=== PATIENT | female | born 1945 | race African-American/Black ===

== ENCOUNTER 2019-03-27 13:16 | Observation (INO) ==
[2019-03-27] MEDS ORDERED: ASPIRIN PO ONE (13:33)
--- NOTE | 2019-03-27 13:37 | EKG Report ---
Test Performed on : 03/27/2019 1:26:50 PM Test Reason : CHEST PAIN Blood Pressure : / mmHG Vent. Rate : 072 BPM Atrial Rate : 072 BPM P-R Int : 150 ms QRS Dur : 088 ms QT Int : 396 ms P-R-T Axes : 069 -13 022 degrees QTc Int : 433 ms Normal sinus rhythm. Possible Left atrial enlargement Borderline ECG No previous ECGs available Unconfirmed Result
[2019-03-27 13:47] LABS: BASO# 0.07 X1000 (0.0-0.2); BASO% 1.6 % (0.0-0.8); EOS# 0.31 X1000 (0.0-0.7); EOS% 6.9 % (0.0-10.0); HEMATOCRIT 37.1 % (37.0-47.0); HEMOGLOBIN 12.2 g/dL (12.0-16.0); LYMPH# 2.04 X1000 (1.2-3.4); LYMPH% 45.5 % (20.5-51.1); MCH 29.6 PG (27-31); MCHC 32.9 g/dL (33-37); MONO# 0.35 X1000 (0.11-0.59); MONO% 7.8 % (1.7-9.3); NEUT# 1.71 X1000 (1.4-6.5); NEUT% 38.2 % (42.2-75.2); PLT 282 X1000 (130-400); RBC 4.12 XMIL (4.2-5.4); WBC 4.48 X1000 (4.8-10.8)
--- NOTE | 2019-03-27 13:52 | Diag Imaging Result Doc PS360 ---
CHEST-2 VIEWS - 03/27/2019 INDICATION: chest and lung pain COMPARISON: 03/20/2019 FINDINGS: The lungs are normally expanded and clear. Heart size and mediastinal contours are normal. No pneumothorax or pleural effusion. IMPRESSION: Negative exam. Electronically signed by Fabián Henderson 03/27/2019 1:49 PM
[2019-03-27 13:55] LABS: PROTIME 13.3 Seconds (11.0-16.0)
[2019-03-27 13:56] LABS: PTT 40.4 Seconds (22.3-41.8)
[2019-03-27 14:17] LABS: AGAP 11; ALB/GLOB RATIO 1.4; ALBUMIN 4.4 g/dL (3.5-5.0); ALKALINE PHOSPHATASE 60 U/L (32-104); BUN 13 mg/dL (8-22); CHLORIDE 102 mmol/L (98-107); COSMO 280; ESTIMATED GFR > 60; GLUCOSE 104 mg/dL (70-104); GOT 19 U/L (10-30); GPT 13 U/L (10-36); POTASSIUM 4.4 mmol/L (3.5-5.1); SODIUM 140 mmol/L (136-145); TCO2 27 mmol/L (25-35); TOTAL BILIRUBIN 0.37 mg/dL (0.20-1.00); TOTAL PROTEIN 7.5 g/dL (6.3-8.3)
[2019-03-27 14:19] LABS: CK PROFILE 192 U/L (24-173)
[2019-03-27 14:36] LABS: CK INDEX 1.2 (0.0-2.5); CK-MB 2.39 ng/mL (0.0-5.0)
--- NOTE | 2019-03-27 16:14 | PROVIDER DOCUMENTATION ---
HPI-Musculoskeletal Pain/Inj - GENERAL Chief Complaint: Back Pain Stated Complaint: BACK PAIN/CHEST PAIN Time Seen by Provider: 03/27/19 15:58 Source: patient, family (Daughter) - HX OF PRESENT ILLNESS-MUSKULOSKELTAL Nature of Presenting Problem: Patient is a 74 yo F with PMH of CAD s/p 1 stent 5 months ago on DAPT, insulin- dependant diabetes, HTN, who presents today c/o approximately 2 weeks of worseni ng sharp mid-thoracic chest pain radiating through her chest, and lower back pain associated with nausea, the pain is rated 9/10, relieved by ASA. Quality of Pain: reports: sharp Severity in ED: severe Onset/Duration: gradual, other (2 weeks) Timing: still present, getting worse Modifying Factors: improves with: analgesics. worse with: movement Any recent injury?: No Similar Symptoms Previously?: No Recently seen or treated by another doctor?: Yes (Patient was hospitalized and treated for TX in [facility] 5 months ago ) - FALL INJURY Location of Pain/Injury: reports: none Pain Radiation: reports: chest Injury Associated Symptoms: reports: denies symptoms - BACK & NECK PAIN/INJURY Back/Neck Pain Location: reports: T-spine, lumbar spine Associated Symptoms: reports: other (Loose stools). denies: loss of bladder control, loss of bowel control, numbness in legs/feet, numbness in upper ext, tingling in upper ext, weakness in legs/feet, weakness in upper ext History of Chronic Neck or Back Pain?: No Review of Systems - Adult - REVIEW OF SYSTEMS - ADULT Constitutional: reports: fatique Eyes: reports: no symptoms reported Ears, Nose, Mouth & Throat: reports: no symptoms reported Cardiovascular: reports: chest pain. denies: edema, orthopnea, palpitations, PND, syncope Respiratory: denies: cough, dyspnea on exertion, shortness of breath Gastrointestinal: reports: diarrhea, nausea. denies: abdominal pain, vomiting Genitourinary: reports: urgency. denies: dysuria, frequency Musculoskeletal: reports: see HPI, back pain Integumentary: reports: no symptoms reported Neurological: denies: dizziness/vertigo, headache/migraines, loss of balance, numbness, paresthesia, syncope Psychiatric: reports: no symptoms reported Endocrine: reports: no symptoms reported Hematologic/Lymphatic: reports: no symptoms reported Allergic/Immunologic: reports: no symptoms reported All Other Systems: Reviewed and Negative Past History - Adult - PAST MEDICAL HISTORY-ADULT Review of Records: reports: Nursing Assessment Review, Medications Reviewed, So cial history reviewed & non-contributory. Cardiovascular: reports: HTN, TX (S/p stent x 1 (Ball Maker: Dr. Mullins in [facility]).) Diabetes Type: Type 2 Diabetes controlled by:: Insulin Dependent - PRIOR SURGERIES/PROCEDURES Surgical/Procedure History: reports: cardiac stent - IMMUNIZATION STATUS Childhood Immunizations: See Nurse Assessment Flu Vaccine: See Nurse Assessment - FAMILY HISTORY Family History: reviewed, not pertinent - SOCIAL HISTORY Smoking: denies Substance Use: none/never Alcohol Use Frequency: never Living Situation: family Physical Exam-Injury Related - Physical Exam-Injury Related Initial Vital Signs Reviewed: Yes (Manual BP 160/80 (did not take BP meds today)) General Appearance: appears well, alert, no apparent distress Eyes: PERRL/EOMI, pink conjunctivae Head, Ears, Nose, Mouth & Throat: normocephalic/atraumatic, moist mucous membranes, normal ENT inspection Neck: full range of motion, supple Respiratory: chest non-tender, lungs clear, normal breath sounds. negative: crackles, rales, rhonchi Cardiovascular: normal peripheral pulses, regular rate, rhythm, no edema, no gallop, no JVD, systolic murmur (1/6 best at LSB) Chest/Breast: deferred Peripheral Pulses: radial (R): 2+, radial (L): 2+, carotid (R): 2+, carotid (L): 2+, femoral (R): 2+, femoral (L): 2+, dorsalis-pedis (R): 2+, dorsalis-pedis (L): 2+ Abdominal Exam: normal bowel sounds, non tender, soft, no organomegaly. negative: no pulsatile mass, abdominal bruit Female Genitalia/Pelvic Exam: deferred Rectal Exam: deferred Back Exam: normal inspection, no CVA tenderness, vertebral tenderness (Multiple- Thoracic and Lumbar). negative: decreased range of motion, ecchymosis, muscle spasm, swelling Extremity: normal range of motion Integumentary: normal color, warm/dry Neurologic: grossly normal Psych/Mental Status: normal mood/affect Progress - PLAN OF CARE/RESULTS Progress/Plan/Lab Results: Vital Signs - 8 hr 03/27/19 19:21 Temperature 98.0 F Pulse Rate 63 Respiratory Rate 20 Blood Pressure 154/84 O2 Sat by Pulse Oximetry 100 Laboratory Results - last 24 hr 03/27/19 03/27/19 03/27/19 13:37 13:37 13:37 WBC 4.48 L RBC 4.12 L Hgb 12.2 Hct 37.1 MCV 90.0 MCH 29.6 MCHC 32.9 L RDW Std Deviation 13.0 Plt Count 282 MPV 10.0 Immature Gran % (Auto) 0.0 Neut % (Auto) 38.2 L Lymph % (Auto) 45.5 Clare % (Auto) 7.8 Eos % (Auto) 6.9 Baso % (Auto) 1.6 H Immature Gran # (Auto) 0.00 Neut # (Auto) 1.71 Lymph # (Auto) 2.04 Clare # (Auto) 0.35 Eos # (Auto) 0.31 Baso # (Auto) 0.07 PT INR PTT (Actin FS) Sodium 140 Potassium 4.4 Chloride 102 Carbon Dioxide 27 Anion Gap 11 BUN 13 Creatinine 1.0 H Estimated GFR/1.73 m2 > 60 BUN/Creatinine Ratio 13 Glucose 104 Calculated Osmolality 280 Calcium 9.0 Total Bilirubin 0.37 AST 19 ALT 13 Alkaline Phosphatase 60 Creatine Kinase 192 H Creatine Kinase Index 1.2 CK-MB (CK-2) 2.39 Troponin T Pyp-[id number]-Qyzlhmauzio Pept 67 Total Protein 7.5 Albumin 4.4 Globulin 3.1 Albumin/Globulin Ratio 1.4 Amylase Lipase Urine Source Urine Color Urine Turbidity Urine pH Ur Specific Rousseau Urine Protein Ur Glucose (Stick) Ur Ketones (Stick) Urine Blood Urine Nitrite Urine Bilirubin Urobilinogen Dipstick Urine Leukocytes Urine WBC (Auto) Urine RBC (Auto) U Epithel Cells (Auto) Urine Bacteria (Auto) Urine Opiates Screen Ur Oxycodone Screen Ur Methadone, Qual Ur Barbiturates Screen Ur Phencyclidine Scrn Ur Amphetamines Screen U Benzodiazepines Scrn Urine Cocaine Screen U Cannabinoids Screen 03/27/19 03/27/19 03/27/19 13:37 13:37 20:21 WBC RBC Hgb Hct MCV MCH MCHC RDW Std Deviation Plt Count MPV Immature Gran % (Auto) Neut % (Auto) Lymph % (Auto) Clare % (Auto) Eos % (Auto) Baso % (Auto) Immature Gran # (Auto) Neut # (Auto) Lymph # (Auto) Clare # (Auto) Eos # (Auto) Baso # (Auto) PT 13.3 INR 1.00 PTT (Actin FS) 40.4 Sodium Potassium Chloride Carbon Dioxide Anion Gap BUN Creatinine Estimated GFR/1.73 m2 BUN/Creatinine Ratio Glucose Calculated Osmolality Calcium Total Bilirubin AST ALT Alkaline Phosphatase Creatine Kinase Creatine Kinase Index CK-MB (CK-2) Troponin T < 0.010 [id number] Pept Total Protein Albumin Globulin Albumin/Globulin Ratio Amylase 94 Lipase Urine Source Urine Color Urine Turbidity Urine pH Ur Specific Rousseau Urine Protein Ur Glucose (Stick) Ur Ketones (Stick) Urine Blood Urine Nitrite Urine Bilirubin Urobilinogen Dipstick Urine Leukocytes Urine WBC (Auto) Urine RBC (Auto) U Epithel Cells (Auto) Urine Bacteria (Auto) Urine Opiates Screen Ur Oxycodone Screen Ur Methadone, Qual Ur Barbiturates Screen Ur Phencyclidine Scrn Ur Amphetamines Screen U Benzodiazepines Scrn Urine Cocaine Screen U Cannabinoids Screen 03/27/19 03/27/19 03/27/19 20:21 20:21 20:21 WBC RBC Hgb Hct MCV MCH MCHC RDW Std Deviation Plt Count MPV Immature Gran % (Auto) Neut % (Auto) Lymph % (Auto) Clare % (Auto) Eos % (Auto) Baso % (Auto) Immature Gran # (Auto) Neut # (Auto) Lymph # (Auto) Clare # (Auto) Eos # (Auto) Baso # (Auto) PT INR PTT (Actin FS) Sodium Potassium Chloride Carbon Dioxide Anion Gap BUN Creatinine Estimated GFR/1.73 m2 BUN/Creatinine Ratio Glucose Calculated Osmolality Calcium Total Bilirubin AST ALT Alkaline Phosphatase Creatine Kinase 186 H Creatine Kinase Index 1.2 CK-MB (CK-2) 2.22 Troponin T < 0.010 [id number] Pept Total Protein Albumin Globulin Albumin/Globulin Ratio Amylase Lipase 25 Urine Source Urine Color Urine Turbidity Urine pH Ur Specific Rousseau Urine Protein Ur Glucose (Stick) Ur Ketones (Stick) Urine Blood Urine Nitrite Urine Bilirubin Urobilinogen Dipstick Urine Leukocytes Urine WBC (Auto) Urine RBC (Auto) U Epithel Cells (Auto) Urine Bacteria (Auto) Urine Opiates Screen Ur Oxycodone Screen Ur Methadone, Qual Ur Barbiturates Screen Ur Phencyclidine Scrn Ur Amphetamines Screen U Benzodiazepines Scrn Urine Cocaine Screen U Cannabinoids Screen 03/27/19 03/27/19 20:35 20:35 WBC RBC Hgb Hct MCV MCH MCHC RDW Std Deviation Plt Count MPV Immature Gran % (Auto) Neut % (Auto) Lymph % (Auto) Clare % (Auto) Eos % (Auto) Baso % (Auto) Immature Gran # (Auto) Neut # (Auto) Lymph # (Auto) Clare # (Auto) Eos # (Auto) Baso # (Auto) PT INR PTT (Actin FS) Sodium Potassium Chloride Carbon Dioxide Anion Gap BUN Creatinine Estimated GFR/1.73 m2 BUN/Creatinine Ratio Glucose Calculated Osmolality Calcium Total Bilirubin AST ALT Alkaline Phosphatase Creatine Kinase Creatine Kinase Index CK-MB (CK-2) Troponin T [id number] Pept Total Protein Albumin Globulin Albumin/Globulin Ratio Amylase Lipase Urine Source CLEAN CATCH Urine Color YELLOW Urine Turbidity CLEAR Urine pH 5.5 Ur Specific Rousseau 1.010 Urine Protein TRACE A Ur Glucose (Stick) NEGATIVE Ur Ketones (Stick) NEGATIVE Urine Blood NEGATIVE Urine Nitrite NEGATIVE Urine Bilirubin NEGATIVE Urobilinogen Dipstick NORMAL Urine Leukocytes NEGATIVE Urine WBC (Auto) <10 Urine RBC (Auto) <10 U Epithel Cells (Auto) <10 Urine Bacteria (Auto) 1+ Urine Opiates Screen NONE DETECTED Ur Oxycodone Screen NONE DETECTED Ur Methadone, Qual NONE DETECTED Ur Barbiturates Screen NONE DETECTED Ur Phencyclidine Scrn NONE DETECTED Ur Amphetamines Screen NONE DETECTED U Benzodiazepines Scrn NONE DETECTED Urine Cocaine Screen NONE DETECTED U Cannabinoids Screen NONE DETECTED Orders Category Date Time Status Cardiac Monitoring DIRECTED Care 03/27/19 13:33 Active Nursing- Obtain EKG ONCE Care 03/27/19 20:32 Active Oxygen Therapy- ED Nursing DIRECTED Care 03/27/19 13:33 Active Saline Loc NOW Care 03/27/19 13:33 Active CHEST-2 VIEWS [RAD] Stat Exams 03/27/19 13:[address] T-SPINE/L-SPINE W/O CON [CT] Stat Exams 03/27/19 17:13 Completed AMYLASE [CHEM] Stat Lab 03/27/19 20:21 Completed CBC WITH ELECTRONIC DIFF [HEME] Stat Lab 03/27/19 13:37 Completed CK PROFILE [SP CHEM] Stat Lab 03/27/19 13:37 Completed CK PROFILE [SP CHEM] Stat Lab 03/27/19 20:21 Completed COMPREHENSIVE METABOLIC PANEL [CHEM] Stat Lab 03/27/19 13:37 Completed LIPASE [CHEM] Stat Lab 03/27/19 20:21 Completed PRO B-NATRIURETIC PEPTIDE Stat Lab 03/27/19 13:37 Completed PROTIME WITH INR [COAG] Stat Lab 03/27/19 13:37 Completed PTT [COAG] Stat Lab 03/27/19 13:37 Completed TROPONIN T Stat Lab 03/27/19 13:37 Completed TROPONIN T Stat Lab 03/27/19 20:21 Completed UA [URINALYSIS] [URINALYSIS] Stat Lab 03/27/19 20:35 Completed URINE DRUG SCREEN Stat Lab 03/27/19 20:35 Completed Aspirin Med 03/27/19 13:33 Discontinued 325 mg PO NOW ONE CP/SOB/Palp >45 yrs of Age Stat Oth 03/27/19 13:33 Ordered EKG [EKG] Stat Ther 03/27/19 13:33 Draft EKG [EKG] Stat Ther 03/27/19 20:32 Ordered Result Diagrams: 03/27/19 13:37 03/27/19 13:37 - EKG 1 EKG Read and Signed by:: Clara Ball EKG Interpretation (*Must complete 3 of following elements*): Abnormal (No acute process) Rate: 72 Rhythm: normal [place]: left (borderline left axis deviation) QRS: poor R wave progression CT Interval: normal ST Wave: normal Prior EKG Comparison: no prior EKG - XRAY 1 XRAY Study: Chest Impression: Normal Comparison with other Films: no prior study - CT/MRI 1 CT Study: Lumbar Spine, Thorax Impression: See EMR Report ( EXAM: CT T-SPINE/L-SPINE W/O CON HISTORY: back pain- midthoracic TECHNIQUE: 1. CT thoracic spine without contrast 2. CT lumbar spine without contrast COMPARISON: None. No plain films obtained. Plain films are recommended prior to the CT. FINDINGS: Thoracic spine: Moderate degenerative bone spurring. No subluxation. No fracture. Slight scoliosis. There are tiny nodules in the lower lungs. There are also scattered granuloma and calcified mediastinal and left hilar lymph nodes. No pleural effusions. No pneumothoraces. Lumbar spine: Good alignment. No subluxation. No fracture. Prominent facet hypertrophy in the lower lumbar spine. No disc herniation i dentified although there are lower disc bulges most pronounced at L4-5. No retroperitoneal hematoma. No aortic aneurysm. IMPRESSION: Thoracic spine: No injury Lumbar spine: No injury) - CONSULTS/PCP/HOSPITALIST Notification Time Discussed: 18:00 (Dr. Lombardo ) Reason/Comments: Admit to observation for enzyme/EKG trend and close monitoring Consult Disposition: Will see in ED #2 Consult: Dr. Lombardo Time Discussed: 21:30 Reason/Comments: Admit to observation Consult Disposition: Admit Departure - Departure Date of Disposition Decision: 03/27/19 Time of Disposition Decision: 18:00 DIAGNOSIS: Elevated CPK, DDD (degenerative disc disease), lumbar, Arthritis of spine Chest pain Qualifiers: Chest pain type: unspecified Qualified Code(s): R07.9 - Chest pain, unspecified Diabetes Qualifiers: Diabetes mellitus type: type 2 Diabetes mellitus intermodal owner operator truck driver insulin use: with intermodal owner operator truck driver use Diabetes mellitus complication status: with circulatory complication Diabetes mellitus complication detail: with other circulatory complications Qualified Code(s): E11.59 - Type 2 diabetes mellitus with other circulatory complications Kidney failure Qualifiers: Renal failure chronicity: unspecified chronicity Qualified Code(s): N19 - Unspecified kidney failure Hypertension Qualifiers: Hypertension type: essential hypertension Qualified Code(s): I10 - Essential (primary) hypertension Disposition: ADMITTED INPATIENT 09 Certified Medical Emergency: Emergent Condition: Good Referrals and Follow-Ups: Nancy Crawford MD [Primary Care Provider] - - Critical Care Note This patient required my direct & personal management of CC.: Yes Total Time (mins): 35 Critical Care Statement: This patient required my direct personal management to treat or rule out processes, the absence of which, could potentiallly result in sudden, clinically significant life or limb threatening deterioration. Attestation - Physician/ CATALINO Attestation Patient care was provided by Advanced Practice Provider:: No The physician spent face to face time with patient:: Yes Advanced Practice Provider documentation review:: Supervising physician onsite and consulted in the evaluation and care of this patient. The physician did have a face to face encounter with the patient. - HEART Score HEART Score: History: Moderately Suspicious (Moderate risk for MACE) HEART Score: ECG: Non-Specific Repolarization Disturbance/LBBB/PM HEART Score: Age: > or = 65 Years HEART Score: Risk Factors for Atherosclerotic Disease: > or = 3 Risk Factors or History of Atherosclerotic Disease HEART Score: Troponin: < or = Normal Limit Total HEART Score:: 6
--- NOTE | 2019-03-27 18:32 | Diag Imaging Result Doc PS360 ---
EXAM: CT T-SPINE/L-SPINE W/O CON HISTORY: back pain- midthoracic TECHNIQUE: 1. CT thoracic spine without contrast 2. CT lumbar spine without contrast COMPARISON: None. No plain films obtained. Plain films are recommended prior to the CT. FINDINGS: Thoracic spine: Moderate degenerative bone spurring. No subluxation. No fracture. Slight scoliosis. There are tiny nodules in the lower lungs. There are also scattered granuloma and calcified mediastinal and left hilar lymph nodes. No pleural effusions. No pneumothoraces. Lumbar spine: Good alignment. No subluxation. No fracture. Prominent facet hypertrophy in the lower lumbar spine. No disc herniation identified although there are lower disc bulges most pronounced at L4-5. No retroperitoneal hematoma. No aortic aneurysm. IMPRESSION: Thoracic spine: No injury Lumbar spine: No injury This exam was performed using automated exposure control, adjustment of mA or kV according to patient size, and/or use of iterative reconstruction technique. Electronically signed by Estrada Hall 03/27/2019 6:30 PM
[2019-03-27 21:07] LABS: UR AMPHETAMINES QUAL NONE DETECTED (NONE DETECT); UR BARBITUATES QUAL NONE DETECTED (NONE DETECT); UR BENZODIAZEPIN QUAL NONE DETECTED (NONE DETECT); UR CANNABINOIDS QUAL NONE DETECTED (NONE DETECT); UR COCAINE QUAL NONE DETECTED (NONE DETECT); UR METHADONE QUAL NONE DETECTED (NONE DETECT); UR OPIATES QUAL NONE DETECTED (NONE DETECT); UR OXYCODONE QUAL NONE DETECTED (NONE DETECT); UR PCP QUAL NONE DETECTED (NONE DETECT)
[2019-03-27 21:17] LABS: URINE SOURCE CLEAN CATCH
[2019-03-27 21:24] LABS: BILIRUBIN URINE NEGATIVE (NEGATIVE); BLOOD URINE NEGATIVE (NEGATIVE); COLOR YELLOW; GLUCOSE URINE NEGATIVE (NEGATIVE); KETONE URINE NEGATIVE (NEGATIVE); LEUKOCYTES URINE NEGATIVE (NEGATIVE); NITRITE URINE NEGATIVE (NEGATIVE); PH URINE 5.5; PROTEIN URINE TRACE mg/dL (NEGATIVE); TURBIDITY URINE CLEAR (CLEAR); UR EPITHELIAL CELLS <10 /HPF (<10); URINE BACTERIA 1+ /HPF; URINE RBC <10 /HPF (<10); URINE WBC <10 /HPF (<10); UROBILINOGEN URINE NORMAL (NORMAL)
[2019-03-27 21:24] LABS: CK INDEX 1.2 (0.0-2.5); CK-MB 2.22 ng/mL (0.0-5.0)
--- NOTE | 2019-03-28 00:15 | EKG Report ---
Test Performed on : 03/27/2019 11:45:48 PM Test Reason : Back pain radiating to chest,Repeat EKG Blood Pressure : / mmHG Vent. Rate : 075 BPM Atrial Rate : 075 BPM P-R Int : 152 ms QRS Dur : 086 ms QT Int : 402 ms P-R-T Axes : 067 -17 016 degrees QTc Int : 448 ms Normal sinus rhythm. Normal ECG When compared with ECG of 27-MAR-2019 13:26, (Unconfirmed) Nonspecific T wave abnormality no longer evident in Anterior leads Unconfirmed Result
[2019-03-28] MEDS ORDERED: ZOFRAN IV PRN (00:32)
[2019-03-28] MEDS: TYLENOL PO PRN ×2 (00:48→14:09)
[2019-03-28 04:50] LABS: BASO# 0.05 X1000 (0.0-0.2); BASO% 1.2 % (0.0-0.8); EOS# 0.35 X1000 (0.0-0.7); EOS% 8.1 % (0.0-10.0); HEMATOCRIT 33.5 % (37.0-47.0); LYMPH# 1.73 X1000 (1.2-3.4); LYMPH% 40.1 % (20.5-51.1); MCH 29.6 PG (27-31); MCHC 32.8 g/dL (33-37); MCV 90.1 FL (81-99); MONO# 0.39 X1000 (0.11-0.59); NEUT# 1.79 X1000 (1.4-6.5); NEUT% 41.6 % (42.2-75.2); PLT 253 X1000 (130-400); RBC 3.72 XMIL (4.2-5.4); RDW 12.9 % (11.5-14.5); WBC 4.31 X1000 (4.8-10.8)
--- NOTE | 2019-03-28 04:54 | HISTORY AND PHYSICAL ---
PRIMARY CARE PHYSICIAN: The patient does not have a primary care provider that she is seeing at this time. She just recently moved here from [place], [place] and has not been able to see her new assigned physician yet. CHIEF COMPLAINT: Back pain that has been radiating to her chest. HISTORY OF PRESENT ILLNESS: Ms. Otto is a 74-year-old female with a past medical history of breast cancer status post left mastectomy, diabetes mellitus, gastroesophageal reflux disease, hyperlipidemia, hypertension, and coronary artery disease status post myocardial infarction and stent placement x1 five months ago in [place], [place]. The patient states that for approximately a few weeks now she has been having intermittent back pain. She states the pain starts in her lower back ,does go up the middle of her spine, and once it hits the mid thoracic area it hurts on both sides of her spine, and sometimes will radiate through to her chest, but she also states the pain does continue up her spine into her neck as well. She reports that it is a sharp type pain that will have a worsening sharp episode, and when that happens it sometimes does radiate through to her chest and has a like a sharp grabbing pain sensation. The patient does have a history of having some cervical disk disease, and states that prior to the back pain she is describing now she has had some bilateral shoulder pain and pain that goes into her right arm where her whole arm and hand will get numb at times. With the pain that she is reporting now she did report some nausea as well, though she denies any shortness of breath. She denies any dizziness, feeling lightheaded or any syncopal or near syncopal episodes. I asked the patient if this chest pain that she was having felt anything like the chest pain she had when she had her myocardial infarction approximately 5 months ago, and she stated noted no that this was completely different. She denies any headache. She denies any shortness of breath or cough. She denies any abdominal pain, vomiting or diarrhea. She denies any dysuria or urinary frequency, though did state that sometimes when the pain in her back on her right side starts to hurt that she sometimes feels like her urine stream is not as strong as it usually is, though she states she still is able to urinate. The patient denies any previous history of renal stones. She does report some chronic swelling in her bilateral feet though states this has not worsened and is usually worse toward the end of the day. Other than this she denies any other pain, numbness, tingling or swelling in extremities except for the previously mentioned numbness she reported in her right arm. She denies any history of congestive heart failure or having to take any diuretics in the past. Upon evaluation in the ER the patient's EKG showed normal sinus rhythm with possible left atrial enlargement at a rate of 72, with a QTc of 433. There does not appear to be any ST elevation or depression. Initial cardiac enzymes did show that she had a slightly elevated CK of 192, though troponin was negative. Repeat CK was still elevated but was trending down and was 186, and then a 2nd troponin was negative also. The patient's pain was relieved by the aspirin she was given in the ER. She is not reporting pain at this time, though given her recent history of myocardial infarction with stent placement, and her not having an established primary care physician we will admit her for observation of her back pain which is radiating to her chest to rule out any acute coronary syndrome. In the ER upon palpation of her back she was tender in her lower back, as well as she did have some CVA tenderness on the left side, and was tender in her lumbothoracic area over her spine. They did perform a CT of thoracic and lumbar spine without contrast, which did not show any acute thoracic or lumbar spine injury, though in the thoracic spine she did have some moderate degenerative bone spurring and slight scoliosis. In the lumbar spine she did have some prominent facet hypertrophy in the lower lumbar spine, and there were lower disk bulges most pronounced at L4 and L5, though no disk herniation is identified. There is no retroperitoneal hematoma or aortic aneurysm present. REVIEW OF SYSTEMS: A 14 point review of systems was conducted with the patient and all were negative except for pertinent positives mentioned in the above HPI. PAST MEDICAL HISTORY: 1. History of left breast cancer status post left breast mastectomy. 2. History of coronary artery disease status post myocardial infarction with stent placement x1 five months ago at the in [place], [place]. 3. Diabetes mellitus. 4. Gastroesophageal reflux disease. 5. Hyperlipidemia. 6. Hypertension. PAST SURGICAL HISTORY: 1. Partial hysterectomy. 2. Left mastectomy. 3. Cardiac stent placement x1. 4. Tumor removal from her nose. SOCIAL HISTORY: The patient denies any tobacco, alcohol or illicit drug use. She is . She previously lived in [place] for many years, though has most recently been living in [place], [place] and just moved here a few months ago. FAMILY HISTORY: Positive for heart disease, diabetes mellitus, breast cancer and ovarian cancer. ALLERGIES: The patient has no known allergies. HOME MEDICATIONS: 1. Vitamin C 1000 mg p.o. daily. 2. Aspirin 81 mg p.o. daily. 3. Zyrtec 10 mg p.o. daily. 4. Plavix 75 mg p.o. daily. 5. NovoLog FlexPen subcu as directed. 6. Basaglar 68 units subcu q.p.m. 7. Cozaar 50 mg p.o. daily. 8. Toprol-XL 200 mg p.o. q.p.m. 9. Nifedipine extended release 60 mg p.o. daily. 10. Omeprazole 40 mg p.o. daily. DIAGNOSTIC DATA: White blood cell count is 4480, hemoglobin 12.2, hematocrit 37.1, platelet count is 282,000. PT 13.3, INR 1, PTT is 40.4. Sodium 140, potassium 4.4, chloride 102, serum bicarbonate is 27, BUN 13, creatinine 1, with a GFR greater than 60, glucose 104, calcium 9. Liver function tests within normal limits. CK is 192, with a repeat of 186. CK index was 1.2, CK- MB is 2.39. Troponin initial and recheck was less than 0.01. ProBNP is 67, amylase 94, lipase 25. Urine drug screen was negative. Urinalysis was obtained via clean catch was positive for trace protein though otherwise negative for glucose, ketones, blood, nitrites, leukocytes, white blood cells or bacteria. EKG showed a normal sinus rhythm with a possible left atrial enlargement at a rate of 72, with a QTc of 433. Chest x-ray showed no acute abnormality, this is per Radiology. CT of thoracic and lumbar spine without contrast did not show any acute thoracic or lumbar spine injuries, though in the thoracic spine she did have moderate degenerative bone spurring, there was some slight scoliosis. She did have some tiny nodules in the lower lobe that were noted, though these are scattered granuloma and calcified mediastinal and left hilar lymph nodes. In the lumbar spine she did have prominent facet hypertrophy in the lower lumbar spine. There was no disk herniation identified, although there are lower disk bulges most pronounced at L4 and L5. There is no retroperitoneal hematoma and no aortic aneurysm. PHYSICAL EXAMINATION: VITAL SIGNS: Temperature 98.2 degrees, heart rate 63, respirations 20, blood pressure is 154/84, oxygen saturation is 100% on room air. GENERAL: Ms. Otto is a pleasant 74-year-old female. She was resting in the ER stretcher. She was in no acute distress. She was awake, alert and able to answer questions appropriately. HEENT: Head is atraumatic, normocephalic. Pupils are equal, round and reactive to light, were 3 mm bilaterally and brisk. Oral mucosa was moist. Oropharynx was clear. NECK: Supple. Trachea midline. CARDIOVASCULAR: The patient has S1 and S2 present. No murmurs, gallops or rubs appreciated with a regular rate and rhythm. PULMONARY: The patient has symmetrical chest expansion bilaterally. Lung sounds are clear to auscultation in bilateral full otto. ABDOMEN: Soft, does not appear to be distended. The patient does have a protuberant abdomen noted. It was nontender upon palpation. She had a negative Inman sign. Bowel sounds are present in all 4 quadrants, were normoactive. EXTREMITIES: No cyanosis noted, though the patient does have some swelling noted to bilateral feet, though there was no pitting edema present. The patient states this is at her baseline and has not worsened. Motor and sensory is intact in all extremities. Radial and pedal pulses were 2+ bilaterally. INTEGUMENTARY: The patient's skin color is normal for her race, is dry and intact. NEUROLOGICAL: The patient is alert and oriented to person, place, time and situation. She is able move all extremities. There were focal neurological deficits noted. MUSCULOSKELETAL: Upon evaluation the patient does have bilateral tenderness in her lower back, as well as in the lumbar area over the spine. She did have CVA tenderness on the left side. ASSESSMENT AND PLAN: 1. Back pain. Given the patient's description of her pain as well as her assessment being tender upon palpation in her lumbar and thoracic back area, as well as reported history of cervical disk disease and having some shoulder pain with numbness of her right arm, though the pain does radiate from her thoracic area in her back through to her chest. She states this pain was different from the chest pain that she had with her myocardial infarction. We do suspect that this is musculoskeletal pain, and is likely not cardiac pain in nature. Given her history of coronary artery disease and recent myocardial infarction and stent placement, and her other history of hypertension, diabetes mellitus, and hyperlipidemia we will go ahead and do a series of cardiac enzymes. We will repeat an EKG in the morning. The patient did receive an aspirin in the ER. She will be placed on the medical floor with continuous cardiac telemetry and frequent vital signs. The patient is not reporting any chest pain at present. We will continue her other really prescribed cardiac medications of 80 mg aspirin p.o. daily, Plavix 75 mg p.o. daily, her Cozaar, Toprol and nifedipine. We will continue to follow this closely. 2. Chest pain. We will continue treatment as mentioned above for #1. 3. Coronary artery disease status post stent placement x1. We will continue with treatment as mentioned above for #1 as well. 4. Hypertension. We have continued her really prescribed medications of Cozaar, Toprol and nifedipine. 5. Hyperlipidemia. 6. History of tachycardia. We have continued her Toprol. 7. Diabetes mellitus. We have continued her Basaglar insulin as well as we have placed her on a sliding scale regular insulin per low-dose protocol with a pattern fingerstick blood sugar. She will be on a diabetic and a heart healthy diet. 8. Deep vein thrombosis prophylaxis was provided with sequential compression devices. 9. She has been placed on the medical floor with telemetry for observation services. We will repeat a series of cardiac enzymes as well as a CBC , BMP and EKG in the morning. 10. Further orders and recommendations pending hospital course, diagnostic studies and physician evaluation. Dictated by DAMIR Perez for Vinny Lombardo MD cc: Vinny Lombardo MD
[2019-03-28 05:15] LABS: CALCIUM 8.8 mg/dL (8.8-10.2); CREATININE 1.1 mg/dL (0.5-0.9); POTASSIUM 3.9 mmol/L (3.5-5.1)
[2019-03-28] MEDS: HUMULIN R SUBQ SCH ×4 (06:43→20:50)
[2019-03-28] MEDS: PRILOSEC PO SCH (06:58)
--- NOTE | 2019-03-28 07:04 | EKG Report ---
Test Performed on : 03/28/2019 06:23:34 AM Test Reason : back pain, chest pain Blood Pressure : / mmHG Vent. Rate : 062 BPM Atrial Rate : 062 BPM P-R Int : 164 ms QRS Dur : 088 ms QT Int : 424 ms P-R-T Axes : 069 -02 023 degrees QTc Int : 430 ms Normal sinus rhythm. Normal ECG When compared with ECG of 27-MAR-2019 23:45, (Unconfirmed) No significant change was found Unconfirmed Result
--- NOTE | 2019-03-28 09:05 | PROGRESS NOTE ---
DATE: 03/28/2019 SUBJECTIVE: She presented with back pain. Apparently, she has had it for at least a week or so. She does not remember straining her back or injuring it. Her description is lower back pain that radiated up into her shoulders. It sounds like it was consistent with muscle spasm. She remains afebrile. OBJECTIVE: Temperature 97.7 degrees, pulse 69, respirations 20, blood pressure 157/77. Pupils were equal. CVP less than 6 cm. Lungs are clear in all lung pena. She was sitting up, eating breakfast. Said she felt much better this morning. Her weight is 177 pounds, height 5 feet 8 inches. No sign of skin rashes. No oral or nasal mucosa lesions. Neck was supple. Laboratory Data: White count 4310, hematocrit 33, platelet count 253,000. Sodium 139, potassium 3.9, chloride 102, BUN 14, creatinine 1.1, her two blood sugars 104 and 162. ASSESSMENT AND PLAN: 1. Back pain. By her description, it sounds like she is having muscle spasm. It is in the lumbar/thoracic area. She has had a history of cervical disk disease, was having some shoulder pain and numbness in the right arm, although the pain does radiate from the thoracic area. We will get physical therapy involved. 2. She has a history of coronary artery disease. She has had a recent myocardial infarction with stent placement, history of hypertension, diabetes mellitus, and hyperlipidemia. 3. Diabetes mellitus type 2. We will pattern her sugars. 4. In regards to coronary artery disease, I do not see any sign of active ischemia. She has had a recent myocardial infarction. 5. History of hyperlipidemia. 6. History of tachycardia. She is on Toprol. REVIEW OF HER LAB: Troponin less than 0.01. We will get physical therapy to work with her. Hopefully, she will not stay in the hospital long. cc: Nahun Valencia MD
[2019-03-28] MEDS: ASPIRIN EC PO SCH (09:40)
[2019-03-28] MEDS: ADALAT CC PO SCH (09:40)
[2019-03-28] MEDS: ZYRTEC PO SCH (09:41)
[2019-03-28] MEDS: PLAVIX PO SCH (09:41)
[2019-03-28] MEDS: VITAMIN C PO SCH (09:41)
[2019-03-28] MEDS: COZAAR PO SCH (09:41)
[2019-03-28] MEDS ORDERED: TOPROL XL PO SCH (21:00)
[2019-03-28] MEDS ORDERED: LANTUS INSULIN SUBQ SCH (21:00)
[2019-03-29] MEDS: PRILOSEC PO SCH (06:11)
[2019-03-29] MEDS: HUMULIN R SUBQ SCH ×2 (06:14→11:14)
[2019-03-29] MEDS: VITAMIN C PO SCH (08:28)
[2019-03-29] MEDS: COZAAR PO SCH (08:28)
[2019-03-29] MEDS: PLAVIX PO SCH (08:28)
[2019-03-29] MEDS: ASPIRIN EC PO SCH (08:28)
[2019-03-29] MEDS: ZYRTEC PO SCH (08:28)
[2019-03-29] MEDS: ADALAT CC PO SCH (08:28)
[2019-03-29 13:13] VITALS: BP 105/66
--- NOTE | 2019-03-29 14:32 | DISCHARGE SUMMARY ---
ADMISSION DATE: 03/28/2019 DISCHARGE DATE: 03/29/2019 HISTORY: This is a 74-year-old whose primary care physician is Dr. Nancy Crawford who recently moved from [place], [place], and has not been able see her assigned physician yet. The back pain has been radiating in her chest. A 74-year-old female with past medical history of breast cancer, status post left mastectomy, diabetes mellitus type 2, gastroesophageal reflux disease, hyperlipidemia, hypertension, coronary artery disease status post myocardial infarction and stent placement x1 5 months ago in [place], [place]. The patient states that approximately for a few weeks now she has been having intermittent back pain. She states that pain starts in the lower back, goes up to the middle of the spine. Once it hits the mid thoracic area, hurts on both sides of the spine. Sometimes, it radiates through to her chest, but also states that the pain continues up her spine and into her neck, and reports it is a sharp type pain and seems to be worsening. She came to the hospital for some pain control. Denies any shortness of breath. No fever or chills. An evaluation in the emergency room showed EKG normal sinus rhythm. Cardiac enzymes unremarkable. It did not sound like pain consistent with angina, but more musculoskeletal pain and specifically muscle spasm. CT of the thoracic lumbar spine without contrast which did not show any acute thoracic lumbar spine injury. She is tender in the lower back, and it is questionable where she had CVA tenderness on the left side. On the thoracic spine, she has some moderate degenerative bone spurring, slight scoliosis in the lumbar spine. She did have some prominent facet hypertrophy in the lower lumbar spine. There were lower disk bulges most pronounced at L4-5, though no disk herniation was identified. There was no retroperitoneal hematoma or aortic aneurysm. PAST MEDICAL HISTORY: 1. History of left breast cancer status post left breast mastectomy. 2. History of coronary artery disease status post myocardial infarction with stent placement x1, 5 months ago at [facility] in [place], [place]. 3. Diabetes mellitus type 2. 4. Gastroesophageal reflux disease. 5. Hyperlipidemia. 6. Hypertension. PAST SURGICAL HISTORY: 1. Partial hysterectomy. 2. Left mastectomy. 3. Cardiac stent placement x1. 4. Tumor removal from her nose. ADMISSION DIAGNOSES: Back pain which looked to be musculoskeletal, and it seemed to improve fairly quickly. Begin some physical therapy. She was walking and had marked good relief of pain. No sign of cardiac ischemia. We know she has underlying coronary artery disease. No sign of pulmonary dysfunction. Blood pressures remained well controlled. Pain seemed to be better controlled. Blood sugars came down nicely. Originally on admission, blood pressures appeared well controlled in the low 100s. She wanted to go home. We will set her up to go home. DISCHARGE MEDICATIONS: She can take Tylenol 650 p.o. q.6 hours, vitamin C 1000 mg daily, aspirin 81 mg a day, Zyrtec 10 mg a day, Plavix 75 mg a day, Lantus insulin: She is on 68 units subcutaneous every evening and Cozaar 50 mg daily. Toprol-XL 200 mg every evening. Nifedipine 60 mg a day, Prilosec 40 mg a day. She will follow up with her primary care physician. cc: Nahun Valencia MD
== END 2019-03-29 15:12 | disposition home or self-care (01) ==
LOC: 3N 13:16 → ED 13:16 → 3N 23:37 → SUATTDRO 03-28 00:59
PROVIDERS: ATTEND Emergency Medicine